=== PATIENT | female | born 1980 | race Caucasian/White ===

== ENCOUNTER → 2017-02-02 | Outpatient (CLI) | payer BC, OTHER ==
[2017-02-02 15:56] LABS: URINE APPEARANCE CLEAR (CLEAR); URINE BILIRUBIN NEG (NEG); URINE COLOR YELLOW; URINE NITRITE NEG (NEG); URINE PH 5.5 (4.5-7.5); URINE SPECIFIC GRAVITY 1.012 (1.000-1.030); UROBILINOGEN NEG (NEG)
[2017-02-02 16:02] LABS: MANUAL MICROSCOPIC REQUIRED? NO; REVIEW REQ? NO
== END | disposition home or self-care (01) ==
LOC: C.LABSPEC 14:49
PROVIDERS: ATTEND Obstetrics & Gynecology
DX: O09.529 Supervision of elderly multigravida, unspecified trimester (principal); Z3A.00 Weeks of gestation of pregnancy not specified

== ENCOUNTER → 2017-06-28 | Outpatient (CLI) | payer OTHER ==
[2017-06-28 18:09] LABS: URINE APPEARANCE CLEAR (CLEAR); URINE BILIRUBIN NEG (NEG); URINE COLOR YELLOW; URINE NITRITE NEG (NEG); URINE PH 5.5 (4.5-7.5); URINE SPECIFIC GRAVITY 1.016 (1.000-1.030); UROBILINOGEN NEG (NEG)
[2017-06-28 18:20] LABS: MANUAL MICROSCOPIC REQUIRED? NO; REVIEW REQ? NO
== END | disposition home or self-care (01) ==
LOC: C.LAB1850 15:51
PROVIDERS: ATTEND Obstetrics & Gynecology
DX: R10.2 Pelvic and perineal pain (principal)

== ENCOUNTER → 2017-08-03 | Outpatient (CLI) | payer OTHER ==
[2017-08-03 14:17] LABS: GTGD 50 Grams
[2017-08-05 13:59] LABS: AFP CONCENTRATION 27.1 NG/ML; AFPTS GESTATIONAL AGE 15.7 WEEKS; AFPTS INSULIN DEP DIABETIC? NO; AFPTS MATERNAL WT 158 LBS; ALPHA-FETOPROTEIN RACE CAUCASIAN=W; ESTRIOL MULTIPLE OF MEDIAN 0.56; HISTORY OF NTD NO; INHIBIN A 171 PG/ML; INHIBIN A MOM 1.01; REPEAT SAMPLE? NO; hCG MULTIPLE OF MEDIAN 1.04
== END | disposition home or self-care (01) ==
LOC: C.LAB1850 10:23
PROVIDERS: ATTEND Obstetrics & Gynecology
DX: O09.522 Supervision of elderly multigravida, second trimester (principal); Z3A.00 Weeks of gestation of pregnancy not specified

== ENCOUNTER 2017-09-21 16:56 | Emergency (ER) | payer OTHER ==
[~2017-09-21] VITALS: Ht 162.6 cm; Wt 74.1 kg
[2017-09-21 17:23] VITALS: TEMP 36.9; Ht 162.6 cm; Wt 74.1 kg
[2017-09-21] MEDS ORDERED: SODIUM CHLORIDE 0.9% 1000ML 1,000 ML IV STA (17:35)
[2017-09-21] MEDS ORDERED: ONDANSETRON INJ 2 MG/ML 2 ML VIAL IV STA (17:35)
[2017-09-21 18:13] LABS: EOS % 0.3 %; EOS ABS # 0.02 K/uL (0-0.5); HEMATOCRIT 32.8 % (37-47); HEMOGLOBIN 11.5 g/dL (12.0-16.0); IG# 0.02 K/uL (0.00-0.02); LYMPH % 10.3 %; MEAN CELL VOLUME 86.1 fL (80-100); MEAN CORPUSCULAR HEMOGLOBIN 30.2 pg (25-34); MEAN CORPUSCULAR HGB CONC 35.1 g/dl (32-36); MONO % 5.1 %; NEUT ABS # 6.55 K/uL (1.4-6.5); PLATELET COUNT 208 K/uL (130-400); RED CELL DISTRIBUTION WIDTH CV 13.5 % (11.5-14.5); RED CELL DISTRIBUTION WIDTH SD 42.5 fL (36.4-46.3); WHITE BLOOD COUNT 7.79 K/uL (4.8-10.8)
[2017-09-21] MEDS ORDERED: PRENTAB26 PO (18:23)
[2017-09-21 18:43] LABS: ALBUMIN 2.9 gm/dl (3.4-5.0); ALKALINE PHOSPHATASE 54 U/L (45-117); ALT/SGPT 18 U/L (12-78); AST/SGOT 14 U/L (15-37); BLOOD UREA NITROGEN 6 mg/dl (7-18); CALCIUM 8.3 mg/dl (8.5-10.1); CARBON DIOXIDE 17 mmol/L (21-32); CREATININE 0.55 mg/dl (0.60-1.20); GLUCOSE 111 mg/dl (70-99); LIPASE 64 U/L (73-393); SODIUM 135 mmol/L (136-145); TOTAL PROTEIN 6.6 gm/dl (6.4-8.2)
[2017-09-21] MEDS ORDERED: POTASSIUM CHLORIDE 10 MEQ TABCR PO STA (18:48)
[2017-09-21] MEDS ORDERED: SODIUM CHLORIDE 0.9% 500ML 500 ML IV STA (18:57)
[2017-09-21 19:27] VITALS: PULSE 98; O2SAT 97
[2017-09-21] MEDS ORDERED: ONDA4TAB10 SL (19:40)
[2017-09-21 19:42] VITALS: BP 112/71
[2017-09-21] MEDS ORDERED: ONDANSETRON HOME PACK 4MG OD TAB PO ONE (20:00)
--- NOTE | 2017-09-22 00:40 | EMERGENCY ROOM VISIT NOTE ---
History First contact with patient: 17:18 Chief Complaint: FLU LIKE SX Stated Complaint: STOMACH FLU History of Present Illness The patient is a 36 year old female who presents to the Emergency Room with complaints of persistent nausea, vomiting and watery diarrhea for the past 24 hours. The patient is 23 weeks . She has been unable to retain approximately 20 ounces of fluid over the past 24 hours. She does not have any nausea medicines at home. She did call her [employer] office and was instructed to come to the emergency department for further treatment. The patient reports that she was at a over the weekend with a cousin that had similar symptoms. She denies any fevers or chills, chest pain, cough, myalgias or headache. She also denies any abdominal cramping or vaginal drainage. Urine output has also decreased. She rates her overall discomfort a 7 out of 10. Review of Systems HEENT: Denies dizziness, visual problems, hearing loss, tinnitus. Denies difficulty swallowing or oral lesions. PULMONARY: Denies cough, shortness of breath, sputum production or hemoptysis. CARDIOVASCULAR: Denies chest pain, palpitations, dyspnea on exertion, orthopnea or peripheral edema. GASTROINTESTINAL: See history of present illness. GENITOURINARY: Denies dysuria, frequency, urgency or nocturia. NEUROLOGIC: Denies history of epilepsy, CVA, TIA or chronic headaches. MUSCULOSKELETAL: Denies history of joint tenderness/swelling. SKIN: Denies rashes or lesions. PSYCHIATRIC: Denies history of depression or mental illness. ENDOCRINE: Denies history of diabetes or thyroid disorders. Past Medical/Surgical History Medical Problems: (1) Kidney stones Surgical Problems: (1) No history of previous surgery Family History FH: cancer FH: diabetes mellitus FH: heart disease FH: hypertension FH: kidney disease Social History Smoking Status: Never Smoker Alcohol Use: none Marital Status: Housing Status: lives with family Occupation Status: employed Current/Historical Medications Scheduled Multivit/Min/Iron/Fol Ac/Pren ( Vitamin), 1 TAB PO DAILY Ondasetron Odt (Zofran Odt), 4 MG SL Q6H Physical Exam Vital Signs Date Time Temp Pulse Resp B/P (MAP) Pulse Ox O2 Delivery O2 Flow Rate FiO2 09/21/17 19:42 112/71 09/21/17 19:27 98 16 87/51 97 Room Air 09/21/17 17:23 36.9 107 18 112/73 97 Room Air Physical Exam CONSTITUTIONAL: Healthy and well nourished. Alert and oriented X 3 with positive affect. Patient does not appear acutely ill or toxic. She appears in mild discomfort from nausea. HEENT: Normocephalic, atraumatic. Pupils equal, round and reactive. Ears and nares are clear. No scleral icterus or conjunctival injection. OROPHARYNX: Mucous membranes are dry. NECK: Full active range of motion without discomfort. RESPIRATORY: Clear to auscultation bilaterally with no wheezing, crackles, rhonchi or stridor. CARDIOVASCULAR: Regular rate and rhythm with no murmurs, rubs or gallops. GASTROINTESTINAL: Bowel sounds present in all quadrants. Fundal height is consistent with gestational age. The patient has mild generalized tenderness to palpation. No CVA tenderness. MUSCULOSKELETAL: Full range of motion of all joints without discomfort. No peripheral edema. INTEGUMENTARY: No rash or other significant dermatologic conditions noted. HEMATOLOGIC: No ecchymosis or petechiae noted. NEUROLOGIC: No focal neurologic deficits noted. Medical Decision & Procedures Laboratory Results 09/21/17 17:48 Red Blood Count 3.81, Mean Corpuscular Volume 86.1, Mean Corpuscular Hemoglobin 30.2, Mean Corpuscular Hemoglobin Concent 35.1, Mean Platelet Volume 11.0, Neutrophils (%) (Auto) 84.0, Lymphocytes (%) (Auto) 10.3, Monocytes (%) (Auto) 5.1, Eosinophils (%) (Auto) 0.3, Basophils (%) (Auto) 0.0, Neutrophils # (Auto) 6.55, Lymphocytes # (Auto) 0.80, Monocytes # (Auto) 0.40, Eosinophils # (Auto) 0.02, Basophils # (Auto) 0.00 09/21/17 17:48 Test 09/21/17 17:48 09/21/17 18:39 White Blood Count 7.79 K/uL (4.8-10.8) Red Blood Count 3.81 M/uL (4.2-5.4) Hemoglobin 11.5 g/dL (12.0-16.0) Hematocrit 32.8 % (37-47) Mean Corpuscular Volume 86.1 fL (80-100) Mean Corpuscular Hemoglobin 30.2 pg (25-34) Mean Corpuscular Hemoglobin Concent 35.1 g/dl (32-36) Platelet Count 208 K/uL (130-400) Mean Platelet Volume 11.0 fL (7.4-10.4) Neutrophils (%) (Auto) 84.0 % Lymphocytes (%) (Auto) 10.3 % Monocytes (%) (Auto) 5.1 % Eosinophils (%) (Auto) 0.3 % Basophils (%) (Auto) 0.0 % Neutrophils # (Auto) 6.55 K/uL (1.4-6.5) Lymphocytes # (Auto) 0.80 K/uL (1.2-3.4) Monocytes # (Auto) 0.40 K/uL (0.11-0.59) Eosinophils # (Auto) 0.02 K/uL (0-0.5) Basophils # (Auto) 0.00 K/uL (0-0.2) RDW Standard Deviation 42.5 fL (36.4-46.3) RDW Coefficient of Variation 13.5 % (11.5-14.5) Immature Granulocyte % (Auto) 0.3 % Immature Granulocyte # (Auto) 0.02 K/uL (0.00-0.02) Anion Gap 11.0 mmol/L (3-11) Est Creatinine Clear Calc Drug Dose 139.5 ml/min Estimated GFR () 139.9 Estimated GFR (Non- 120.7 BUN/Creatinine Ratio 11.5 (10-20) Calcium Level 8.3 mg/dl (8.5-10.1) Total Bilirubin 0.4 mg/dl (0.2-1) Direct Bilirubin < 0.1 mg/dl (0-0.2) Aspartate Amino Transf (AST/SGOT) 14 U/L (15-37) Alanine Aminotransferase (ALT/SGPT) 18 U/L (12-78) Alkaline Phosphatase 54 U/L (45-117) Total Protein 6.6 gm/dl (6.4-8.2) Albumin 2.9 gm/dl (3.4-5.0) Lipase 64 U/L (73-393) Urine Color YELLOW Urine Appearance CLEAR (CLEAR) Urine pH 5.5 (4.5-7.5) Urine Specific [place] 1.017 (1.000-1.030) Urine Protein NEG (NEG) Urine Glucose (UA) NEG (NEG) Urine Ketones NEG (NEG) Urine Occult Blood NEG (NEG) Urine Nitrite NEG (NEG) Urine Bilirubin NEG (NEG) Urine Urobilinogen NEG (NEG) Urine Leukocyte Esterase NEG (NEG) The above labs were reviewed. Potassium is 3. White count is normal. Urinalysis shows no hematuria or signs of infection. LFTs and lipase are normal. Medications Administered Medications (Trade) Dose Ordered Sig/Que Route Start Time Stop Time Status Last Admin Dose Admin Sodium Chloride 1,000 ml @ 999 mls/hr Q1H1M STAT IV 09/21/17 17:35 09/21/17 18:35 DC 09/21/17 17:56 999 MLS/HR Ondansetron HCl (Zofran Inj) 4 mg NOW STAT IV 09/21/17 17:35 09/21/17 17:36 DC 09/21/17 17:55 4 MG Potassium Chloride (Klor-Con M10) 40 meq NOW STAT PO 09/21/17 18:48 09/21/17 18:49 DC 09/21/17 18:55 40 MEQ Sodium Chloride 500 ml @ 999 mls/hr Q31M STAT IV 09/21/17 18:57 09/21/17 19:27 DC 09/21/17 19:00 999 MLS/HR Ondansetron HCl (ZOFRAN ODT 4MG Home Pack) 1 homepack UD ONCE PO 09/21/17 20:00 09/21/17 20:01 DC 09/21/17 20:00 1 HOMEPACK Procedure 1. IV hydration: The patient was hydrated with a total of 1.5 liters normal saline 2. IV medications: Zofran 4 mg IVP ED Course Patient history and physical exam were performed. Nurse's notes were reviewed. Vital signs were reviewed, showing mild tachycardia at 107 bpm. The patient is otherwise normotensive and afebrile. The patient appears in mild distress from nausea. IV access was established, and labs were drawn. The patient was hydrated with normal saline, and administered IV Zofran for nausea. Review of labs shows a potassium of 3. The patient was administered potassium chloride 40 mEq orally, and had no further nausea area remaining labs were otherwise grossly normal. The patient's blood pressure did dip slightly prior to discharge, however recheck of blood pressure was normal. The patient was also ambulated without any adverse symptoms. The patient felt well enough for discharge. The patient was provided a home pack and prescription for Zofran to prevent nausea. She was encouraged to remain well-hydrated. Return to the emergency department for any progressively worsening symptoms, or inability to remain hydrated secondary to persistent vomiting. She was encouraged to follow-up with her PCP as needed if symptoms are not improving within the next few days. The patient was happy with plan of care, and voiced understanding of all discharge instructions. Medical Decision Patient presents to the emergency department with complaint of copious vomiting and watery diarrhea. Her laboratory studies does show a hypokalemia which should be replenished with oral potassium. She is afebrile and has no significant leukocytosis. Laboratory studies are not suggestive of pancreatitis , cholecystitis or hepatitis. Urinalysis does not suggest infection. I do not suspect complication of . The patient responded nicely to IV hydration and antiemetics. [place] Drug Monitoring Program Search Results: patient reviewed within database Medication Reconcilliation Current Medication List: was personally reviewed by me Blood Pressure Screening Patient's blood pressure: Normal blood pressure Impression Primary Impression: Gastroenteritis Additional Impression: Intrauterine Departure Information Prescriptions Ondasetron Odt (ZOFRAN ODT) 4 Mg Tab 4 MG SL Q6H for Nausea, #10 TAB Prov: Arnol Velázquez PA 09/21/17 Referrals No Doctor, Assigned (PCP) Patient Instructions [facility] Problem Qualifiers
== END 2017-09-21 19:50 | disposition home or self-care (01) ==
LOC: C.EDB 16:57 → C.EDD 19:50
DX: O26.92 Pregnancy related conditions, unspecified, second trimester (principal); K52.9 Noninfective gastroenteritis and colitis, unspecified; Z87.442 Personal history of urinary calculi; Z80.9 Family history of malignant neoplasm, unspecified; Z83.3 Family history of diabetes mellitus; Z82.49 Family history of ischemic heart disease and other diseases of the circulatory system; Z84.1 Family history of disorders of kidney and ureter

== ENCOUNTER → 2017-10-28 | Outpatient (CLI) | payer OTHER ==
[~2017-10-28] MED LIST: ONDA4TAB10 SL; PRENTAB26 PO
[2017-10-28 12:18] LABS: HEMATOCRIT 31.3 % (37-47); HEMOGLOBIN 10.8 g/dL (12.0-16.0)
== END | disposition home or self-care (01) ==
LOC: C.LAB1850 09:10
PROVIDERS: ATTEND Obstetrics & Gynecology
DX: O09.523 Supervision of elderly multigravida, third trimester (principal); Z3A.00 Weeks of gestation of pregnancy not specified

== ENCOUNTER 2017-11-08 18:07 | Outpatient (CLI) | payer OTHER | END 2017-11-08 18:40 | disposition home or self-care (01) | LOC: C.OPB 18:07 → C.LD 18:09 → C.OPB 18:09 → C.LD 18:12 → C.OPB 18:40 → C.LD 18:40 | PROVIDERS: ATTEND Obstetrics & Gynecology | DX: O36.8190 Decreased fetal movements, unspecified trimester, not applicable or unspecified (principal); Z3A.00 Weeks of gestation of pregnancy not specified ==

== ENCOUNTER → 2017-12-23 | Outpatient (CLI) | payer OTHER | END | disposition home or self-care (01) | LOC: C.LABSPEC 11:02 | PROVIDERS: ATTEND Obstetrics & Gynecology | DX: O09.523 Supervision of elderly multigravida, third trimester (principal); Z3A.00 Weeks of gestation of pregnancy not specified ==

== ENCOUNTER 2018-01-20 06:13 | Inpatient (IN) | payer OTHER ==
[~2018-01-20] VITALS: Ht 162.6 cm; Wt 166.0 kg
[2018-01-26 08:11] VITALS: Ht 162.6 cm; Wt 166.0 kg
[2018-01-26] MEDS ORDERED: LACTATED RINGER'S 1000ML 1,000 ML IV PRN (08:23)
[2018-01-26] MEDS ORDERED: LACTATED RINGER'S 1000ML 500 ML IV PRN ×2 (08:23→12:08)
[2018-01-26] MEDS ORDERED: OXYTOCIN 30 UNITS/500ML NSS IV PRN ×2 (08:30→14:45)
[2018-01-26] MEDS: LACTATED RINGER'S 1000ML 1,000 ML IV SCH ×2 (08:42→11:27)
[2018-01-26 08:50] LABS: HEMATOCRIT 34.7 % (37-47); HEMOGLOBIN 12.1 g/dL (12.0-16.0); MEAN CELL VOLUME 86.8 fL (80-100); MEAN CORPUSCULAR HEMOGLOBIN 30.3 pg (25-34); MEAN CORPUSCULAR HGB CONC 34.9 g/dl (32-36); MEAN PLATELET VOLUME 12.5 fL (7.4-10.4); PLATELET COUNT 134 K/uL (130-400); RED CELL DISTRIBUTION WIDTH CV 13.4 % (11.5-14.5); RED CELL DISTRIBUTION WIDTH SD 42.7 fL (36.4-46.3); WHITE BLOOD COUNT 6.47 K/uL (4.8-10.8)
[2018-01-26] MEDS ORDERED: BUPIVACAINE 0.25% 30 ML VIAL ONE ×2 (11:03→12:37)
[2018-01-26] MEDS ORDERED: EpHEDrine SULFATE INJ 50 MG/ML AMP ONE (11:03)
[2018-01-26] MEDS ORDERED: FENTANYL CITRATE INJ 50 MCG/1 ML 2 ML VIAL ONE ×2 (11:05→12:38)
[2018-01-26] MEDS ORDERED: FENTANYL 2MCG/ML ROPIV 1.25MG/ML 100ML BAG ONE (11:06)
[2018-01-26] MEDS ORDERED: NALOXONE HCL INJ 1 MG in SODIUM CHLORIDE 0.9% 1000ML 1,000 ML IV PRN (12:08)
[2018-01-26] MEDS ORDERED: DiphenhydrAMINE HCL 50 MG/ML VIAL IV PRN (12:15)
[2018-01-26] MEDS ORDERED: NALOXONE HCL INJ 0.4 MG/1 ML VIAL/CARP IV PRN (12:15)
[2018-01-26] MEDS ORDERED: FENTANYL 2MCG/ML ROPIV 1.25MG/ML 100ML BAG EPI PRN (12:15)
[2018-01-26] MEDS ORDERED: EpHEDrine SULFATE INJ 50 MG/ML AMP IV PRN (12:15)
[2018-01-26] MEDS ORDERED: NALBUPHINE HCL INJ 10 MG/ML AMP IV PRN (12:15)
[2018-01-26] MEDS ORDERED: ONDANSETRON INJ 2 MG/ML 2 ML VIAL IV PRN (12:15)
[2018-01-26] MEDS ORDERED: DIPHTHERIA/TETANUS/PERTUSSIS 0.5 ML SYR/VIAL IM. ONE (14:45)
[2018-01-26] MEDS ORDERED: HYDROCORTISONE ACETATE 25 MG SUPP PR PRN (14:45)
[2018-01-26] MEDS ORDERED: SUPERCREAM 0.870 % 15GM JAR EXT PRN (14:45)
[2018-01-26] MEDS ORDERED: ACETAMINOPHEN 325 MG TAB PO PRN (14:45)
[2018-01-26] MEDS ORDERED: ACETAMINOPHEN/CODEINE 300/30MG TAB PO PRN ×2 (14:45)
[2018-01-26] MEDS ORDERED: LANOLIN OINT EXT PRN (14:45)
[2018-01-26] MEDS ORDERED: BENZOCAINE 20% AER SPR 82.5 GM CAN EXT PRN (14:45)
[2018-01-26] MEDS ORDERED: OXYCODONE/ACETAMINOPHEN 5-325 TAB PO PRN (14:45)
--- NOTE | 2018-01-26 15:24 | Anesthesia Procedure Note ---
Anesthesia Epidural Removal Nt Date & Time January 26, 2018 at 15:23 Vital Signs Pain Intensity: 7.0 Notes Mental Status: alert / awake / arousable, participated in evaluation Nausea / Vomiting: adequately controlled Pain: adequately controlled Airway Patency, RR, SpO2: stable & adequate BP & HR: stable & adequate Hydration State: stable & adequate Neuraxial Anesthesia: was administered Anesthetic Complications: no major complications apparent, pt satisfied with anesthetic care Epidural: removed without complications, with tip intact
[2018-01-26] MEDS: IBUPROFEN 600 MG TAB PO PRN ×2 (16:58→21:54)
[2018-01-26 17:00] VITALS: BP 110/66; PULSE 68; TEMP 36.6; O2SAT 98
[2018-01-26 20:00] VITALS: BP 119/78; PULSE 70; TEMP 36.6
[2018-01-26] MEDS: DOCUSATE SODIUM 100 MG CAP PO SCH (20:05)
[2018-01-27 00:10] VITALS: BP 104/65; PULSE 64; TEMP 36.7
--- NOTE | 2018-01-27 01:17 | DELIVERY SUMMARY ---
DATE OF OPERATION: 01/26/2018 PREOPERATIVE DIAGNOSIS: Intrauterine at 40 and 6/7th weeks. POSTOPERATIVE DIAGNOSIS: Same. PROCEDURES: 1. Epidural anesthesia x2. 2. Normal spontaneous vaginal delivery. 3. Second-degree perineal laceration with repair. SURGEON: Crystal Reeder MD ANESTHESIA: Epidural. ESTIMATED BLOOD LOSS: 350 mL. DESCRIPTION OF PROCEDURE: Patient presented to labor and delivery for induction at 40 and 6/7th weeks for postdatism. She was 250% minus 2 on presentation. She underwent Pitocin augmentation. She got uncomfortable and underwent epidural #1, which was nonfunctional. She then had a second epidural placed, which was thankfully functional. About 40 minutes after her functional epidural and she was comfortable, she underwent a pelvic exam and was found to be 7 cm dilated, 100% effaced, 0 station. An amniotomy was performed for clear fluid. She progressed fairly quickly after that to complete complete and +1 station and pushed over approximately 2-3 contractions. She delivered a viable female in PAULINE presentation. There was a tight nuchal cord, which I could not slip over the baby's head and so was clamped and cut on the perineum and the rest of the baby was then delivered without difficulty. The nose and mouth were bulb suctioned. The baby was immediately vigorous and was placed on the maternal abdomen for drying and attention. Cord blood was obtained. Placenta was delivered spontaneously intact with a 3-vessel cord. Cervix, sulci, and rectum were examined and found to be intact. A second-degree perineal laceration was repaired with 3-0 Vicryl in a normal standard fashion. One [id number] suture was placed in a small laceration on the inner right labia. Hemostasis was obtained with dilute Pitocin and fundal massage. Estimated blood loss was 350 mL. Mother and baby were doing well at the end of delivery. Apgars 8 and 9. I attest to the content of the Intraoperative Record and any orders documented therein. Any exception s are noted below.
[2018-01-27 03:45] VITALS: BP 123/80; PULSE 53; TEMP 36.5
--- NOTE | 2018-01-27 06:24 | Progress Note ---
Subjective January 27, 2018. Subjective conversation w/ patient Ambulation: ambulating normally Voiding: no voiding problems Diet Tolerance: Regular Diet Lochia: Moderate Feeding Type: Bottle Feeding Pain: Mild abdominal cramping noted Review of Systems Constitutional: No fever, No chills Respiratory: No shortness of breath Cardiac: No chest pain Abdomen: No nausea, No vomiting Objective Vital Signs Date Time Temp Pulse Resp B/P (MAP) Pulse Ox O2 Delivery O2 Flow Rate FiO2 01/27/18 03:45 36.5 53 18 123/80 (94) 01/27/18 00:10 36.7 64 18 104/65 (78) 01/27/18 00:10 Room Air 01/26/18 20:00 36.6 70 18 119/78 (92) 01/26/18 17:00 36.6 68 16 110/66 (81) 98 Room Air 01/26/18 17:00 Room Air Physical Exam General Appearance: WELL-APPEARING, WD/WN, NO APPARENT DISTRESS Respiratory/Chest: lungs clear, normal breath sounds Cardiovascular: regular rate, rhythm Abdomen: soft Fundus: Firm, Non-Tender, Relation to Umbilicus (1 below) Extremities: no pedal edema, no calf tenderness Laboratory Results Last 24 Hours Test 01/26/18 08:33 01/27/18 04:44 White Blood Count 6.47 K/uL Red Blood Count 4.00 M/uL Hemoglobin 12.1 g/dL Hematocrit 34.7 % Mean Corpuscular Volume 86.8 fL Mean Corpuscular Hemoglobin 30.3 pg Mean Corpuscular Hemoglobin Concent 34.9 g/dl RDW Standard Deviation 42.7 fL RDW Coefficient of Variation 13.4 % Platelet Count 134 K/uL Mean Platelet Volume 12.5 fL Assessment and Plan Problem List Medical Problems: (1) Gastroenteritis Status: Acute (2) Hypokalemia Status: Acute (3) Intrauterine Status: Acute Post- Day#: 1 Continue Routine Care: 37F s/p NVD day 1 - O-, Rubella Immune, GBS -ve - baby is rhesus negative as well, rhogam not necessary - pt doing very well clinically - Vital signs reviewed and WNL - Encourage ambulation, monitor and control pain with Motrin PRN - Encourage breast feeding - Pt ready for d/c today provided baby is as well and will be counselled on discharge instructions Resident Physician Supervision Note: I interviewed and examined the patient. Discussed with Dr. Bansal and agree with findings and plan as documented in the note. Any exceptions or clarifications are listed here: Doing well. Plan d/c later today. Instructions given. Documented By: Crystal Reeder Resident Tracking Resident Involvement: Resident Care Provided Care Provided: OB Delivery
[2018-01-27 06:41] LABS: HEMATOCRIT 33.5 % (37-47); HEMOGLOBIN 11.7 g/dL (12.0-16.0)
--- NOTE | 2018-01-27 06:48 | Discharge Instructions ---
Discharge Instructions Date of Service January 27, 2018. Admission Reason for Admission: Induction Discharge Discharge Diagnosis / Problem: Vaginal Delivery Discharge Goals Goal(s): Routine recovery after delivery Medications Continue Dispensed Medications: supercream, dermaplast, tucks, lansinoh Activity Recommendations Activity Limitations: per Instructions/Follow-up section . Instructions / Follow-Up Instructions / Follow-Up ACTIVITY RECOMMENDATIONS: * Gradual return to full activity over the next 2-3 weeks. * No lifting - nothing heavier than baby over the next 2-3 weeks. * Do not engage in vigorous exercise, sexual activity or sports until cleared by your physician. * Do not drive or operate any motorized equipment until cleared by your physician. * You may shower/bathe daily. MEDICATIONS: For discomfort or pain, you may use Acetaminophen (Tylenol), Ibuprofen (Advil), or Naproxen (Aleve) following the package directions. For constipation you may use Colace following the package directions. BREAST CARE: If you are not breast feeding: * Wear a supportive bra 24 hours a day for one to two weeks. * Avoid stimulating your breasts and nipples as much as possible during the first few weeks after delivery. * When taking a shower, have the warm water hit your back, not breasts. * When your breasts feel full, apply ice packs. Usually three to four times a day helps ease the discomfort. * Take a mild pain medication (Tylenol / Motrin) when you are uncomfortable. If breast feeding: * Use breast milk to lubricate nipples. Lansinoh cream may be used for sore nipples. You do not need to remove cream prior to breast feeding. If using a different brand of cream, check the label for directions regarding removal of cream prior to nursing. * Wear a supportive bra. * If having problems with breasts or breast feeding, call a dynamics ax consultant or your health care provider. EPISIOTOMY CARE: After delivery, if you have an episiotomy (stitches), the following steps will ease discomfort and aid healing. * For the first 24 hours after delivery, place ice packs next to your episiotomy to help reduce swelling. * After the first 24 hour-period, sitz baths, either portable or in the tub, are suggested. A shower with a shower arm sprayed over the episiotomy may be comforting. * Cora care should be done after each voiding and bowel movement. Squirt warm water from a plastic bottle over the perineum (region of the body between the anus and urinary opening) and pat dry. * Use Dermoplast to ease discomfort. Shake container. [place] directly over the episiotomy. Place a Tucks on a clean sanitary pad next to your episiotomy. SPECIAL CARE INSTRUCTIONS: When you are discharged from the hospital, it is important for you to follow the instructions listed below: * During the first week at home, you should be able to care for yourself and your baby. In addition, the usual light household activities are encouraged. * Limit your activities to the way you feel. Do not try to clean the house or move furniture. Be sensible. * If you actively engage in sports and have done so up until the time of your delivery, you may resume these activities as soon as you feel able. This may take up to one month or even longer. Use good judgment. * Continue to take your vitamins for at least six weeks after the of your baby. * Your diet need not be limited unless you were on a special diet before your delivery. Breast-feeding mothers need around 2500 calories per day and at least 64-80 ounces of fluid per day (8 to 10 glasses). * You should eat foods from the four major food groups. Crash diets or fad diets are to be avoided. Eating lean meats, fresh fruits and vegetables, low-fat dairy products, high fiber foods and a regular exercise program, will help you get back to your pre- weight without putting your health at risk. * Constipation is sometimes a problem after delivery. Take a mild laxative as needed. If breast feeding, Milk of Magnesia is acceptable to use. You may use a suppository or Fleets enema if no episiotomy. * A daily shower or tub bath is suggested. Be sure to thoroughly and gently dry the perineum. * A bloody vaginal discharge will usually continue until around four weeks post . A small amount of bleeding may continue for as long as six weeks. Vaginal discharge changes from the bright red bleeding after delivery to pink then brownish and finally yellowish-pink before becoming white and disappearing. * Bleeding may increase with activity. Your first period may come in 4-8 weeks. If you are breast feeding, your period may be delayed even longer. * [place] (sex) can begin whenever both you and your partner feel comfortable and do not have any form of genital infection. It is recommended that you wait at least six weeks for internal and external healing to occur. If you have questions, please talk to your health care practitioner. A condom should be used to prevent infection and . * Foreplay, gentle intercourse and lubrication is very important the first several times to prevent pain. A water-based lubricant such as K-Y jelly or Astroglide may be used. * If you have RH negative blood and your baby is RH positive, you will receive RHOGAM by injection prior to discharge. The nurse will give you a card to keep with you that has the date and place that you received RHOGAM after delivery. * During your care, you had a Rubella screen done to check for the presence of rubella antibodies in your blood. If your test was negative, you will receive a Rubella vaccine prior to discharge. This vaccine may cause a fever, soreness at the injection site and flu-like symptoms. If these symptoms persist, notify your health care practitioner. is not advised for one month after a Rubella vaccine. * Verbalizes understanding of car seat law as reviewed with patient nursing. * Car Seat hand-out given and reviewed with patient by nursing. * Shaken baby information reviewed with patient by nursing. Call you doctor if: * Heavy bleeding (saturating several pads an hour) or passing clots the size of your fist. * A fever >101 degrees F (38.3 degrees C) on two occasions four hours apart and /or chills. * Unusual pain in the pelvic or vaginal areas. * "Baby Blues" lasting longer than two weeks. If you have any questions or concerns, call your health care practitioner at . FOLLOW UP VISIT: * Please call the office at to schedule a 6 week examination. It is important you keep this appointment. It is important for you to make arrangements for either yearly or twice yearly check-ups thereafter. Current Hospital Diet Patient's current hospital diet: Regular OB Diet Discharge Diet Recommended Diet: Regular Diet Pending Studies Studies pending at discharge: no Medical Emergencies . Who to Call and When: Medical Emergencies: If at any time you feel your situation is an emergency, please call [phone] immediately. . Non-Emergent Contact Non-Emergency issues call your: Primary Care Provider . . "Provider Documentation" section prepared by Bin Bansal. .
[2018-01-27] MEDS: IBUPROFEN 600 MG TAB PO PRN (07:59)
[2018-01-27] MEDS: DOCUSATE SODIUM 100 MG CAP PO SCH (07:59)
[2018-01-27 08:00] VITALS: BP 109/74; PULSE 63; TEMP 36.3; O2SAT 97
[2018-01-27] MEDS ORDERED: PRENATAL VITAMIN TAB PO SCH (08:00)
[2018-01-27 11:45] VITALS: BP 109/67; PULSE 69; TEMP 36.8; O2SAT 98
[2018-01-27 15:22] VITALS: BP_DIAS 67; PULSE 69; TEMP 36.8
== END 2018-01-27 15:45 | disposition home or self-care (01) | DRG 775 ==
LOC: C.LD 01-26 07:25 → C.OBG 01-26 16:54
PROVIDERS: ADMIT Obstetrics & Gynecology; ATTEND Obstetrics & Gynecology
PROC: 0KQM0ZZ Repair Perineum Muscle, Open Approach (ICD-10-PCS; principal; 2018-01-26)
PROC: 10E0XZZ Delivery of Products of Conception, External Approach (ICD-10-PCS; principal; 2018-01-26)
DX: O48.0 Post-term pregnancy (principal); O36.0930 Maternal care for other rhesus isoimmunization, third trimester, not applicable or unspecified; O70.1 Second degree perineal laceration during delivery; O69.1XX0 Labor and delivery complicated by cord around neck, with compression, not applicable or unspecified; O09.293 Supervision of pregnancy with other poor reproductive or obstetric history, third trimester; O09.523 Supervision of elderly multigravida, third trimester; Z3A.40 40 weeks gestation of pregnancy; Z37.0 Single live birth

== ENCOUNTER 2020-06-11 12:58 | Inpatient (IN) ==
[2020-06-11] MEDS ORDERED: OXYTOCIN 30 UNITS/500 ML BAG IV PRN ×2 (20:37)
[2020-06-11 21:04] LABS: Hematocrit (blood only) 35.5 % (37-47); Hemoglobin 12.1 g/dL (12.0-16.0); Mean Corpuscular Hemoglobin 30.2 pg (25-34); Mean Corpuscular Volume 88.5 fL (80-100); Mean Platelet Volume 11.7 fL (7.4-10.4); Platelet Count 146 K/uL (130-400); RDW Coefficient of Variation 13.8 % (11.5-14.5); RDW Standard Deviation 44.4 fL (36.4-46.3); Red Blood Count 4.01 M/uL (4.2-5.4); White Blood Count 8.81 K/uL (4.8-10.8)
[2020-06-11 21:05] LABS: Mean Corpuscular Hgb Conc 34.1 g/dL (32-36)
[2020-06-11] MEDS: LACTATED RINGER'S 1,000 ML IV PRN ×2 (21:26→23:19)
[2020-06-11] MEDS ORDERED: ePHEDrine sulfate 50 MG/ML AMP ONE (22:31)
[2020-06-11] MEDS ORDERED: BUPIVACAINE 0.25% 30 ML VIAL ONE (22:31)
[2020-06-11] MEDS ORDERED: fentaNYL citrate 100 MCG/2 ML VIAL ONE (22:31)
[2020-06-11] MEDS ORDERED: fentaNYL 2MCG/ML ROPIV 1.25MG/ML 100 ML BAG EPI ONE (22:32)
[2020-06-11] MEDS ORDERED: ePHEDrine sulfate 50 MG/ML AMP IV PRN (22:34)
[2020-06-11] MEDS ORDERED: ONDANSETRON INJ 2 MG/ML 2 ML VIAL IV PRN (22:34)
[2020-06-11] MEDS ORDERED: DiphenhydrAMINE HCL 50 MG/ML VIAL IV PRN (22:34)
[2020-06-11] MEDS ORDERED: NALOXONE HCL 0.4 MG/1 ML VIAL/CARP IV PRN (22:34)
[2020-06-11] MEDS ORDERED: NALOXONE HCL 1 MG in SODIUM CHLORIDE 0.9% 1000ML 1,000 ML IV PRN (22:34)
--- NOTE | 2020-06-11 22:36 | Anesthesiology Consultation ---
Date of Service June 11, 2020 Assessment & Plan (1) Encounter for pre-operative examination: Chart Review Chart Review: Patient NOT seen in Pre Admission Testing and Acceptable Risk for Labor Epidural Consults Requested none History Height/Weight Height: 5 ft 4 in Weight: 77.111 kg Allergies Allergy/AdvReac Type Severity Reaction Status Date / Time No Known Allergies Allergy Unknown Verified 06/10/20 14:27 Medications Home Medications Medication Instructions Recorded Confirmed Last Taken prenat.vits,sonia,[id number] 1 tab PO DAILY 11/15/19 06/11/20 06/10/20 Active Medications Generic Name Dose Route Start Last Admin Trade Name Freq PRN Reason Stop Dose Admin Lactated Ringer's 1,000 mls @ 125 mls/hr 06/11/20 20:37 06/11/20 21:26 Lr IV 06/13/20 20:36 125 mls/hr .Q8H PRN Administration L&D Protocol Protocol Oxytocin 30 units in 500 mls @ 3 mls/hr 06/11/20 20:37 06/11/20 22:04 Pitocin IV 06/13/20 20:36 0.18 units/hr .Q24H PRN 3 mls/hr Labor Induction/Augmentation Titration Protocol 0.18 UNITS/HR Past Medical History Medical History 40 weeks gestation of Anemia affecting fourth Encounter for anatomic survey Gastroenteritis Kidney stones Missed Supervision of normal intrauterine in multigravida Varicella vaccine Exercise / Class Metabolic Activity II 4-5 Yardwork/Stairs/Walk up hill Past Family History Family History Father Cardiac disorder Diabetes Dyslipidemia Heart disease Hypertension Mother Cervical cancer Dyslipidemia Hypertension Osteoporosis Grandmother (Maternal) Ovarian cancer Past Surgical History Surgical History H/O myringotomy S/P wisdom tooth extraction Past Anesthesia History No Hx of Anesthesia Complications and No Family Hx of Anesthesia Complications History of PONV No Hx of PONV and No Hx of Motion Sickness Social History Smoking Status: Former smoker Do You Dip or Chew Tobacco: No Hx Alcohol Use: No Hx Substance Use: No Physical Exam Vital Signs Last Vital Signs Temp 36.7 C 06/11/20 20:17 Pulse 70 06/11/20 22:55 Resp 18 06/11/20 22:00 BP 112/79 06/11/20 22:54 Pulse Ox 99 06/11/20 22:55 Testing Laboratory Results 06/11/20 20:47
[2020-06-11] MEDS: fentaNYL 2MCG/ML ROPIV 1.25MG/ML 100 ML BAG EPI PRN (23:08)
[2020-06-12] MEDS: LACTATED RINGER'S 1,000 ML IV PRN (07:15)
--- NOTE | 2020-06-12 08:14 | Labor Progress Brief Note ---
Date of Service June 12, 2020 Subjective Entry delayed due to interim delivery of another patient. Modesta seen this morning and was comfortable with epidural. Assessment & Plan (1) Encounter for supervision of normal in multigravida, antepartum: Elective IOL. Continue current management. Admission and Anticipated Discharge Date Admission Date: June 11, 2020 Physical Exam Physical Exam: /-2 AROM clear fluid FHT Cat 1 [place] Q2-4 Pit running Results & Data ([facility]) Vital Signs (Past 12 Hours) Vital Signs Temp Pulse Resp BP Pulse Ox 06/12/20 08:10 61 98 06/12/20 08:05 53 L 98 06/12/20 08:02 48 L 109/66 06/12/20 08:00 54 L 98 06/12/20 07:55 65 98 06/12/20 07:50 49 L 97 06/12/20 07:47 57 L 94/57 L 06/12/20 07:45 52 L 97 06/12/20 07:40 61 99 06/12/20 07:35 56 L 98 06/12/20 07:31 57 L 100/61 06/12/20 07:30 60 98 06/12/20 07:25 60 98 06/12/20 07:20 59 L 97 06/12/20 07:16 98.4 F 60 20 107/66 06/12/20 07:15 57 L 98 06/12/20 07:10 57 L 98 06/12/20 07:05 66 96 06/12/20 07:01 60 106/74 06/12/20 07:00 62 98 06/12/20 06:55 65 97 06/12/20 06:50 63 97 06/12/20 06:46 60 103/72 06/12/20 06:45 64 97 06/12/20 06:40 61 97 06/12/20 06:35 62 97 06/12/20 06:32 57 L 110/70 06/12/20 06:30 54 L 18 96 06/12/20 06:25 60 96 06/12/20 06:20 60 97 06/12/20 06:16 59 L 108/70 06/12/20 06:15 58 L 97 06/12/20 06:10 62 98 06/12/20 06:05 61 97 06/12/20 06:01 57 L 105/71 06/12/20 06:00 57 L 18 96 06/12/20 05:55 61 98 06/12/20 05:50 55 L 96 06/12/20 05:47 59 L 101/66 06/12/20 05:45 53 L 97 06/12/20 05:40 55 L 96 06/12/20 05:35 61 96 06/12/20 05:33 54 L 92/62 L 06/12/20 05:30 63 18 97 06/12/20 05:25 62 96 06/12/20 05:20 49 L 96 06/12/20 05:16 56 L 89/61 L 06/12/20 05:15 62 96 06/12/20 05:10 55 L 95 06/12/20 05:05 54 L 96 06/12/20 05:01 54 L 96/64 L 06/12/20 05:00 60 18 97 06/12/20 04:55 56 L 97 06/12/20 04:50 57 L 98 06/12/20 04:46 57 L 98/58 L 06/12/20 04:45 53 L 97 06/12/20 04:40 47 L 97 06/12/20 04:35 46 L 96 06/12/20 04:31 51 L 95/58 L 06/12/20 04:30 52 L 18 96 06/12/20 04:25 56 L 97 06/12/20 04:20 57 L 99 06/12/20 04:17 58 L 94/53 L 06/12/20 04:15 52 L 99 06/12/20 04:10 61 99 06/12/20 04:05 56 L 98 06/12/20 04:02 52 L 88/56 L 06/12/20 04:00 56 L 96 06/12/20 03:55 55 L 96 06/12/20 03:50 55 L 96 06/12/20 03:46 53 L 96/55 L 06/12/20 03:45 53 L 97 06/12/20 03:40 56 L 98 06/12/20 03:35 55 L 96 06/12/20 03:33 57 L 89/54 L 06/12/20 03:30 65 98 06/12/20 03:25 61 96 06/12/20 03:20 55 L 97 06/12/20 03:17 55 L 100/57 L 06/12/20 03:15 57 L 95 06/12/20 03:10 61 97 06/12/20 03:05 56 L 96 06/12/20 03:01 60 93/63 L 06/12/20 03:00 63 18 96 06/12/20 02:55 61 96 06/12/20 02:50 63 98 06/12/20 02:46 60 100/64 06/12/20 02:45 62 97 06/12/20 02:40 62 98 06/12/20 02:35 58 L 97 06/12/20 02:31 55 L 101/68 06/12/20 02:30 97.7 F 55 L 18 98 06/12/20 02:25 57 L 98 06/12/20 02:20 61 100 06/12/20 02:19 60 93 06/12/20 02:17 66 90/62 L 06/12/20 02:15 75 97 06/12/20 02:10 61 96 06/12/20 02:06 58 L 93 06/12/20 02:05 60 94 06/12/20 02:01 65 102/65 06/12/20 02:00 66 18 97 06/12/20 01:55 62 94 06/12/20 01:50 74 99 06/12/20 01:46 56 L 94/64 L 06/12/20 01:45 52 L 97 06/12/20 01:40 75 99 06/12/20 01:35 61 98 06/12/20 01:31 57 L 100/64 06/12/20 01:30 62 18 95 06/12/20 01:25 75 98 06/12/20 01:20 69 97 06/12/20 01:16 56 L 106/62 06/12/20 01:15 61 98 06/12/20 01:14 72 94 06/12/20 01:10 59 L 98 06/12/20 01:06 62 93 06/12/20 01:05 53 L 98 06/12/20 01:01 66 100/64 06/12/20 01:00 59 L 18 95 06/12/20 00:55 61 96 06/12/20 00:50 61 97 06/12/20 00:47 58 L 95/56 L 06/12/20 00:45 57 L 97 06/12/20 00:40 56 L 97 06/12/20 00:35 61 98 06/12/20 00:31 57 L 94/57 L 06/12/20 00:30 58 L 18 98 06/12/20 00:25 62 98 06/12/20 00:20 74 97 06/12/20 00:17 69 92/52 L 06/12/20 00:15 53 L 98 06/12/20 00:10 58 L 97 06/12/20 00:05 56 L 98 06/12/20 00:03 60 93/60 L 06/12/20 00:00 56 L 18 98 06/11/20 23:55 60 98 06/11/20 23:50 62 98 06/11/20 23:47 62 117/65 06/11/20 23:45 62 99 06/11/20 23:40 61 99 06/11/20 23:35 64 99 06/11/20 23:31 70 108/65 06/11/20 23:30 65 18 99 06/11/20 23:25 81 99 06/11/20 23:20 67 99 06/11/20 23:16 71 111/69 06/11/20 23:15 72 99 06/11/20 23:12 69 116/69 06/11/20 23:10 70 99 06/11/20 23:08 18 06/11/20 23:06 71 18 108/69 06/11/20 23:05 71 99 06/11/20 23:04 73 8 L 109/74 06/11/20 23:02 18 06/11/20 23:00 71 18 110/74 99 06/11/20 22:58 70 18 100/60 06/11/20 22:55 70 99 06/11/20 22:54 68 112/79 06/11/20 22:50 63 99 06/11/20 22:45 70 100 06/11/20 22:40 66 100 06/11/20 22:11 63 119/70 06/11/20 22:00 18 06/11/20 21:00 18 06/11/20 20:17 98.1 F 88 113/83 06/11/20 20:16 98.2 F 18 Coding Level of Care Code None Diagnoses Encounter for supervision of normal in multigravida, antepartum Z34.80
[2020-06-12] MEDS: fentaNYL 2MCG/ML ROPIV 1.25MG/ML 100 ML BAG EPI PRN (09:43)
--- NOTE | 2020-06-12 09:47 | Labor Progress Brief Note ---
Date of Service June 12, 2020 Subjective Reason For Note: Routine Evaluation feeling some pressure with ctx. Assessment & Plan (1) Encounter for elective induction of labor: (2) Encounter for supervision of normal in multigravida, antepartum: (3) Need for rhogam due to Rh negative mother: on pit, making progress, categ 2 cont with pit. aware i am taking over care. Admission and Anticipated Discharge Date Admission Date: June 11, 2020 Physical Exam Constitutional: WD/WN, vitals as above Psychiatric: A+Ox3, euthymic affect Genitourinary: Manual OB Exam: + cervical dilation 5 cm, + cervical effacement 80%, + station -2 and + amniotic fluid clear OB Exam Monitor Tracing: + external FHT monitor used (130 mod variability), + external uterine monitor used (q2), + category II, + normal FHT variability and + variable decelerations Results & Data ([facility]) Vital Signs (Past 12 Hours) Vital Signs Temp Pulse Resp BP Pulse Ox 06/12/20 09:40 62 99 06/12/20 09:35 60 97 06/12/20 09:31 78 100/66 06/12/20 09:30 60 98 06/12/20 09:25 59 L 99 06/12/20 09:20 66 98 06/12/20 09:17 60 99/59 L 06/12/20 09:15 62 98 06/12/20 09:10 66 97 06/12/20 09:05 53 L 97 06/12/20 09:01 76 91/64 L 06/12/20 09:00 59 L 98 06/12/20 08:55 57 L 97 06/12/20 08:50 58 L 97 06/12/20 08:47 60 110/60 06/12/20 08:45 65 99 06/12/20 08:40 74 99 06/12/20 08:35 61 98 06/12/20 08:31 98.1 F 57 L 20 95/60 L 06/12/20 08:30 67 98 06/12/20 08:25 63 97 06/12/20 08:20 58 L 97 06/12/20 08:17 72 91/60 L 06/12/20 08:15 60 97 06/12/20 08:10 61 98 06/12/20 08:05 53 L 98 06/12/20 08:02 48 L 109/66 06/12/20 08:00 54 L 98 06/12/20 07:55 65 98 06/12/20 07:50 49 L 97 06/12/20 07:47 57 L 94/57 L 06/12/20 07:45 52 L 97 06/12/20 07:40 61 99 06/12/20 07:35 56 L 98 06/12/20 07:31 57 L 100/61 06/12/20 07:30 60 98 06/12/20 07:25 60 98 06/12/20 07:20 59 L 97 06/12/20 07:16 98.4 F 60 20 107/66 06/12/20 07:15 57 L 98 06/12/20 07:10 57 L 98 06/12/20 07:05 66 96 06/12/20 07:01 60 106/74 06/12/20 07:00 62 98 06/12/20 06:55 65 97 06/12/20 06:50 63 97 06/12/20 06:46 60 103/72 06/12/20 06:45 64 97 06/12/20 06:40 61 97 06/12/20 06:35 62 97 06/12/20 06:32 57 L 110/70 06/12/20 06:30 54 L 18 96 06/12/20 06:25 60 96 06/12/20 06:20 60 97 06/12/20 06:16 59 L 108/70 06/12/20 06:15 58 L 97 06/12/20 06:10 62 98 06/12/20 06:05 61 97 06/12/20 06:01 57 L 105/71 06/12/20 06:00 57 L 18 96 06/12/20 05:55 61 98 06/12/20 05:50 55 L 96 06/12/20 05:47 59 L 101/66 06/12/20 05:45 53 L 97 06/12/20 05:40 55 L 96 06/12/20 05:35 61 96 06/12/20 05:33 54 L 92/62 L 06/12/20 05:30 63 18 97 06/12/20 05:25 62 96 06/12/20 05:20 49 L 96 06/12/20 05:16 56 L 89/61 L 06/12/20 05:15 62 96 06/12/20 05:10 55 L 95 06/12/20 05:05 54 L 96 06/12/20 05:01 54 L 96/64 L 06/12/20 05:00 60 18 97 06/12/20 04:55 56 L 97 06/12/20 04:50 57 L 98 06/12/20 04:46 57 L 98/58 L 06/12/20 04:45 53 L 97 06/12/20 04:40 47 L 97 06/12/20 04:35 46 L 96 06/12/20 04:31 51 L 95/58 L 06/12/20 04:30 52 L 18 96 06/12/20 04:25 56 L 97 06/12/20 04:20 57 L 99 06/12/20 04:17 58 L 94/53 L 06/12/20 04:15 52 L 99 06/12/20 04:10 61 99 06/12/20 04:05 56 L 98 06/12/20 04:02 52 L 88/56 L 06/12/20 04:00 56 L 96 06/12/20 03:55 55 L 96 06/12/20 03:50 55 L 96 06/12/20 03:46 53 L 96/55 L 06/12/20 03:45 53 L 97 06/12/20 03:40 56 L 98 06/12/20 03:35 55 L 96 06/12/20 03:33 57 L 89/54 L 06/12/20 03:30 65 98 06/12/20 03:25 61 96 06/12/20 03:20 55 L 97 06/12/20 03:17 55 L 100/57 L 06/12/20 03:15 57 L 95 06/12/20 03:10 61 97 06/12/20 03:05 56 L 96 06/12/20 03:01 60 93/63 L 06/12/20 03:00 63 18 96 06/12/20 02:55 61 96 06/12/20 02:50 63 98 06/12/20 02:46 60 100/64 06/12/20 02:45 62 97 06/12/20 02:40 62 98 06/12/20 02:35 58 L 97 06/12/20 02:31 55 L 101/68 06/12/20 02:30 97.7 F 55 L 18 98 06/12/20 02:25 57 L 98 06/12/20 02:20 61 100 06/12/20 02:19 60 93 06/12/20 02:17 66 90/62 L 06/12/20 02:15 75 97 06/12/20 02:10 61 96 06/12/20 02:06 58 L 93 06/12/20 02:05 60 94 06/12/20 02:01 65 102/65 06/12/20 02:00 66 18 97 06/12/20 01:55 62 94 06/12/20 01:50 74 99 06/12/20 01:46 56 L 94/64 L 06/12/20 01:45 52 L 97 06/12/20 01:40 75 99 06/12/20 01:35 61 98 06/12/20 01:31 57 L 100/64 06/12/20 01:30 62 18 95 06/12/20 01:25 75 98 06/12/20 01:20 69 97 06/12/20 01:16 56 L 106/62 06/12/20 01:15 61 98 06/12/20 01:14 72 94 06/12/20 01:10 59 L 98 06/12/20 01:06 62 93 06/12/20 01:05 53 L 98 06/12/20 01:01 66 100/64 06/12/20 01:00 59 L 18 95 06/12/20 00:55 61 96 06/12/20 00:50 61 97 06/12/20 00:47 58 L 95/56 L 06/12/20 00:45 57 L 97 06/12/20 00:40 56 L 97 06/12/20 00:35 61 98 06/12/20 00:31 57 L 94/57 L 06/12/20 00:30 58 L 18 98 06/12/20 00:25 62 98 06/12/20 00:20 74 97 06/12/20 00:17 69 92/52 L 06/12/20 00:15 53 L 98 06/12/20 00:10 58 L 97 06/12/20 00:05 56 L 98 10/01/20 00:03 60 93/60 L 06/12/20 00:00 56 L 18 98 06/11/20 23:55 60 98 06/11/20 23:50 62 98 06/11/20 23:47 62 117/65 06/11/20 23:45 62 99 06/11/20 23:40 61 99 06/11/20 23:35 64 99 06/11/20 23:31 70 108/65 06/11/20 23:30 65 18 99 06/11/20 23:25 81 99 06/11/20 23:20 67 99 06/11/20 23:16 71 111/69 06/11/20 23:15 72 99 06/11/20 23:12 69 116/69 06/11/20 23:10 70 99 06/11/20 23:08 18 06/11/20 23:06 71 18 108/69 06/11/20 23:05 71 99 06/11/20 23:04 73 8 L 109/74 06/11/20 23:02 18 06/11/20 23:00 71 18 110/74 99 06/11/20 22:58 70 18 100/60 06/11/20 22:55 70 99 06/11/20 22:54 68 112/79 06/11/20 22:50 63 99 06/11/20 22:45 70 100 06/11/20 22:40 66 100 06/11/20 22:11 63 119/70 06/11/20 22:00 18 Coding Level of Care Code None Diagnoses Encounter for elective induction of labor Z34.90 Encounter for supervision of normal in multigravida, antepartum Z34.80 Need for rhogam due to Rh negative mother Z29.13
[2020-06-12] MEDS ORDERED: ACETAMINOPHEN 325 MG TAB PO PRN (11:30)
[2020-06-12] MEDS ORDERED: OXYTOCIN 20 UNITS in LACTATED RINGER'S 1,000 ML IV SCH (11:30)
[2020-06-12] MEDS ORDERED: OXYCODONE/ACETAMINOPHEN 5mg/325mg TAB PO PRN (11:30)
--- NOTE | 2020-06-12 11:33 | Delivery Summary ---
Vaginal Delivery Summary Date of Service June 12, 2020 The patient dilated to complete and pushed to deliver a viable male infant Apgars 9 and 9 via over 2nd degree perineal laceration. Mouth and nose bulb suctioned at perineum. Shoulders and body delivered with ease. was vigorous and crying at . Cord clamped at 30 seconds of life and to maternal abdomen where the cord was then doubly clamped and cut. Placenta delivered spontaneously and intact, three-vessel cord. Hemostasis achieved with dilute pitocin and uterine massage and drainage of the bladder for approximately 100 cc under sterile conditions. Laceration repaired in usual fashion with 3-0 vicryl. Cervix and sulci intact. EBL 300 cc. Mother and baby stable recovery. [facility] Vaginal Delivery Charge Vaginal Delivery Codes: 85858 global code for the antepartum, delivery, and post-
[2020-06-12] MEDS ORDERED: HYDROCORTISONE ACETATE 25 MG SUPP PR PRN (12:20)
[2020-06-12] MEDS ORDERED: OXYTOCIN 30 UNITS/500 ML BAG IV PRN (12:20)
[2020-06-12] MEDS ORDERED: BENZOCAINE 20% AER SPR 82.5 GM CAN EXT PRN (12:20)
[2020-06-12] MEDS ORDERED: SUPERCREAM 0.870% 15 GM JAR EXT PRN (12:20)
[2020-06-12] MEDS ORDERED: DIPHTHERIA/TETANUS/PERTUSSIS 0.5 ML SYR/VIAL IM ONE (12:20)
--- NOTE | 2020-06-12 13:44 | Anesthesia Procedure Note ---
Date of Service June 12, 2020 Anesthesia Post Epidural Note Vital Signs Vital Signs: Temp Pulse Resp BP Pulse Ox 36.6 C 65 20 111/73 98 06/12/20 13:30 06/12/20 13:16 06/12/20 13:30 06/12/20 13:31 06/12/20 11:35 Pain Intensity Lower Abdomen: Pain Intensity: 5 Notes Mental Status: alert / awake / arousable Nausea / Vomiting: adequately controlled Pain: adequately controlled Airway Patency, RR, SpO2: stable & adequate BP & HR: stable & adequate Hydration State: stable & adequate Neuraxial Anesthesia: was administered and sensory block is resolving Anesthetic Complications: no major complications apparent and Pt Satisfied with anesthetic care Epidural: Removed without complications and With tip intact
[2020-06-12] MEDS: IBUPROFEN 600 MG TAB PO PRN ×2 (14:31→19:44)
[2020-06-12] MEDS: DOCUSATE SODIUM 100 MG CAP PO SCH (19:44)
[2020-06-13] MEDS: IBUPROFEN 600 MG TAB PO PRN ×2 (00:15→06:16)
--- NOTE | 2020-06-13 05:37 | Obstetrical Progress Note ---
Date of Service June 13, 2020 Assessment & Plan (1) : S/p Day 1 - Feels well today. Eating well, voiding well, ambulating well. - Pain well-controlled with ibuprofen 600mg Q4H PRN. - Vital signs reviewed and WNL. - Hemoglobin reviewed. 12.1 (pre-). - Blood Type: O- (s/p Rhogam at 28 weeks), antibody negative, GBS negative, Rubella Immune, COVID-19 negative - Continue routine post- care: encourage ambulation, monitor and control pain with Motrin PRN, continue regular OB diet, monitor lochia - Encourage breast feeding. - Pt counseled on discharge instructions today - After discharge, will have 6-wk follow-up with Dr. Salazar Admission and Anticipated Discharge Date Admission Date: June 11, 2020 Supervising Physician Co-Signing Physician Notes Resident Physician Supervision Note: I was present with Dr. Jacobs during the history and exam. I discussed the case with the resident and agree with the findings and plan as documented in the note. Any exceptions or clarifications are listed here: doing well, ready to go home later today. f/u 6 wk pp check. instructions reviewed. Documented By: Aislinn Salazar MD, FACOG Subjective HPI Modesta Brown is a 39 y/o female who is PPD 1 spontaneous vaginal delivery at 39 2/7 weeks. She reports feeling well overall this morning. No abdominal cramping and 0/10 pain well managed on analgesics. Voiding well. Tolerating meals overnight without difficulty. Patient has been able to ambulate some. passing gas and no bowel movement. Has persistent lochia with some improvement this morning. Currently bottle-feeding with formula. Review of Systems Review of Systems: ROS Denies fever or chills. Denies shortness of breath or cough. Denies chest pain. Denies breast pain. Denies dysuria. Denies leg pain or leg swelling. Physical Exam Physical Exam: PE General: Alert, oriented. No acute distress. Cardiac: Regular rate and rhythm. No murmurs. Respiratory: Clear to auscultation bilaterally a/p, no wheezes/rales/rhonchi. No increased work of breathing. Symmetrical chest rise. No respiratory distress. Abdomen: Soft, nontender, nondistended. Bowel sounds present. Uterus: Uterine fundus firm, palpable 1 cm below umbilicus. Lower Extremities: No lower extremity edema or swelling. No deep calf pain. H denice's negative bilaterally. Results & Data ([facility]) Vital Signs (Past 12 Hours) Vital Signs Temp Pulse Resp BP Pulse Ox 06/13/20 03:20 36.7 C 68 16 95/59 L 97 06/13/20 00:00 36.5 C 75 16 108/65 98 06/12/20 19:45 36.7 C 63 16 124/78 97 Resident Activity Tracking Resident Involvement: Resident Care Provided Care Provided: OB Delivery
[2020-06-13] MEDS: DOCUSATE SODIUM 100 MG CAP PO SCH (08:22)
== END 2020-06-13 13:10 | disposition home or self-care (01) | DRG 768 ==
LOC: 4S1 20:13 → 4S2 06-12 15:39